=== PATIENT | female | born 1955 | race Caucasian/White ===

== ENCOUNTER → 2019-04-29 | Outpatient (CLI) | payer MEDICARE ==
--- NOTE | 2019-04-29 09:09 | MM ---
Reason for exam: additional evaluation requested from prior study. Last mammogram was performed 1 year ago. History: Patient is postmenopausal and has history of breast cancer at age 56. Took estrogen for 3 months. Took progesterone for 3 months. Took antineoplastic for 5 years beginning at age 56. Physical Findings: Nurse did not find any significant physical abnormalities on exam. MG 3D Diag Mammo W/Cad ARON Bilateral CC and MLO view(s) were taken. Prior study comparison: April 17, 2018, mammogram. March 15, 2017, mammogram. February 20, 2016, mammogram. The breast tissue is heterogeneously dense. This may lower the sensitivity of mammography. Benign appearing bilateral calcifications. No suspicious abnormality. Post therapy change on the right. No significant new findings when compared with previous films. These results were verbally communicated with the patient and result sheet given to the patient on 04/29/19. ASSESSMENT: Benign, BI-RAD 2 RECOMMENDATION: Follow-up diagnostic mammogram of both breasts in 1 year.
== END | disposition home or self-care (01) ==
LOC: RADMAMWWP 07:55
PROVIDERS: ATTEND Internal Medicine Hematology & Oncology
DX: Z08 Encounter for follow-up examination after completed treatment for malignant neoplasm (principal); Z85.3 Personal history of malignant neoplasm of breast
CPT/HCPCS: 77066; G0279; 77062

== ENCOUNTER → 2020-06-02 | Outpatient (CLI) | payer MEDICARE ==
--- NOTE | 2020-06-02 10:02 | MM ---
Reason for exam: additional evaluation requested from prior study. Last mammogram was performed 1 year and 1 month ago. History: Patient is postmenopausal and has history of breast cancer at age 56. Family history of breast cancer in maternal aunt at age 46. 2 benign excisional biopsies of the right breast. Radiation therapy of the right breast. Took estrogen for 3 months. Took progesterone for 3 months. Took antineoplastic for 5 years beginning at age 56. Physical Findings: Nurse did not find any significant physical abnormalities on exam. MG 3D Diag Mammo W/Cad ARON Bilateral CC and MLO view(s) were taken. Prior study comparison: April 29, 2019, bilateral MG 3d diag mammo w/cad ARON. April 17, 2018, mammogram. The breast tissue is heterogeneously dense. This may lower the sensitivity of mammography. Post surgical changes right breast. These results were verbally communicated with the patient and result sheet given to the patient on 06/02/20. ASSESSMENT: Benign, BI-RAD 2 RECOMMENDATION: Follow-up diagnostic mammogram of both breasts in 1 year.
== END | disposition home or self-care (01) ==
LOC: RADMAMWWP 08:43
PROVIDERS: ATTEND Family Medicine
DX: Z08 Encounter for follow-up examination after completed treatment for malignant neoplasm (principal); Z85.3 Personal history of malignant neoplasm of breast
CPT/HCPCS: 77066; G0279; 77062

== ENCOUNTER → 2021-06-08 | Outpatient (CLI) | payer MEDICARE ==
--- NOTE | 2021-06-08 09:44 | MM ---
Reason for exam: additional evaluation requested from prior study. Last mammogram was performed 1 year ago. History: Patient is postmenopausal and has history of breast cancer at age 56. Family history of breast cancer in maternal aunt at age 46. Lumpectomy of the right breast, 2011. 2 benign excisional biopsies of the right breast. Radiation therapy of the right breast. Took estrogen for 3 months. Took progesterone for 3 months. Took antineoplastic for 5 years beginning at age 56. Physical Findings: Nurse did not find any significant physical abnormalities on exam. MG 3D Diag Mammo W/Cad ARON Bilateral CC and MLO view(s) were taken. Prior study comparison: June 02, 2020, bilateral MG 3d diag mammo w/cad ARON. April 29, 2019, bilateral MG 3d diag mammo w/cad ARON. There are scattered fibroglandular densities. Post operative and biopsy clip right breast. These results were verbally communicated with the patient and result sheet given to the patient on 06/08/21. ASSESSMENT: Benign, BI-RAD 2 RECOMMENDATION: Follow-up diagnostic mammogram of both breasts in 1 year.
== END | disposition home or self-care (01) ==
LOC: RADMAMWWP 08:34
PROVIDERS: ATTEND Family Medicine
DX: N64.89 Other specified disorders of breast (principal); Z78.0 Asymptomatic menopausal state; Z80.3 Family history of malignant neoplasm of breast; Z85.3 Personal history of malignant neoplasm of breast
CPT/HCPCS: 77066; G0279; 77062

== ENCOUNTER → 2022-06-29 | Outpatient (CLI) | payer MEDICARE ==
--- NOTE | 2022-06-29 08:46 | MM ---
Reason for Exam: Hx of breast cancer, conservation therapy. Last mammogram was performed 1 year(s) and 1 month(s) ago. Patient History: Menarche at age 12. First Full-Term at age 21. Left ovary removed at age 45. Right ovary removed at age 45. Hysterectomy at age 45. Postmenopausal. Breast cancer, right, age 56. Estrogen for 3 months until age 45. Progesterone for 3 months until age 45. 2011, Lumpectomy on the Right side. Benign Excisional Biopsy on the right side. Benign Excisional Biopsy on the right side. Radiation Therapy, right. Maternal aunt had breast cancer, age 46. Prior Study Comparison: 02/20/2016 Screening Mammogram, Unknown. 03/15/2017 Screening Mammogram, Unknown. 04/17/2018 Screening Mammogram, Unknown. 04/29/2019 Bilateral Diagnostic Mammogram, [facility]. 06/02/2020 Bilateral Diagnostic Mammogram, [facility]. 06/08/2021 Bilateral Diagnostic Mammogram, [facility]. Tissue Density: There are scattered fibroglandular densities. Findings: Analyzed By CAD. Left breast is larger than the right. Postsurgical changes are on the right. There are surgical clips present on the right. There are benign calcifications bilaterally. Focal asymmetries in the outer left breast on craniocaudal view is stable from comparison. No significant interval changes are evident. Overall Assessment: Benign, BI-RAD 2 Management: Screening Mammogram of both breasts in 1 year. A clinical breast exam by your physician is recommended on an annual basis and results should be correlated with mammographic findings. This exam should not preclude additional follow-up of suspicious palpable abnormalities. Results were given to the patient verbally at the time of exam. Electronically signed and approved by: Joseph Rubio D.O. Radiologis
== END | disposition home or self-care (01) ==
LOC: RADMAMWWP 08:01
PROVIDERS: ATTEND Family Medicine
DX: R92.8 Other abnormal and inconclusive findings on diagnostic imaging of breast (principal); Z78.0 Asymptomatic menopausal state; Z80.3 Family history of malignant neoplasm of breast
CPT/HCPCS: 77066; G0279; 77062

== ENCOUNTER → 2023-07-04 | Outpatient (CLI) | payer MEDICARE ==
--- NOTE | 2023-07-05 14:22 | MM ---
Reason for Exam: Screening (asymptomatic). Last screening mammogram was performed 12 month(s) ago. Patient History: Menarche at age 12. First Full-Term at age 21. Left ovary removed at age 45. Right ovary removed at age 45. Hysterectomy at age 45. Postmenopausal. Breast cancer, right, age 56. Estrogen for 3 months until age 45. Progesterone for 3 months until age 45. 2012, Lumpectomy on the Right side. Benign Excisional Biopsy on the right side. Benign Excisional Biopsy on the right side. Radiation Therapy, right. Maternal aunt had breast cancer, age 46. Prior Study Comparison: 06/02/2020 Bilateral Diagnostic Mammogram, [facility]. 06/08/2021 Bilateral Diagnostic Mammogram, [facility]. 06/29/2022 Bilateral MG 3D diag mammo w/cad ARON, [facility]. Tissue Density: There are scattered fibroglandular densities. Findings: Analyzed By CAD. Pattern appears stable. Surgical clips prior biopsy are within upper outer mid right breast. Stable calcifications are within the upper outer anterior right breast. Left breast appears stable. 4 markers are within the right breast. No suspicious groups of microcalcifications, spiculated or lobular masses, architectural distortion or other secondary signs of malignancy are mammographically apparent. Overall Assessment: Benign, BI-RAD 2 Management: Screening Mammogram of both breasts in 1 year. A negative mammogram report should not preclude additional follow up of suspicious palpable abnormalities. Patient should continue monthly self breast exam. A clinical breast exam by your physician is recommended on an annual basis and results should be correlated with mammographic findings. Electronically signed and approved by: Joseph Rubio D.O. Radiologis
== END | disposition home or self-care (01) ==
LOC: RADMAMWWP 09:20
PROVIDERS: ATTEND Family Medicine
DX: Z12.31 Encounter for screening mammogram for malignant neoplasm of breast (principal); Z78.0 Asymptomatic menopausal state; Z80.3 Family history of malignant neoplasm of breast
CPT/HCPCS: 77063; 77067